=== PATIENT | male | born 1970 | race Native Hawaiian/Other Pacific Islander ===

== ENCOUNTER 2025-06-24 01:40 | Inpatient (IN) | payer OTHER ==
[~2025-06-24] VITALS: Ht 172.7 cm; Wt 102.3 kg
[~2025-06-24 01:40] MED LIST: ACET500 PO; AMOX-CLAV 500-1 EAC5 PO; AMOX-CLAV 875-1 EAC5 PO; DICLOFENAC SODI50 GM TP; DOCU100 PO; Diflucan100 MG PO; ELIQUIS5 M3 PO; FOLI1 PO; FUROSEMIDE40 MG PO; JARDIANCE10 MG PO; LIDOCAINE1 EACH TOP; METO50ER PO; NYSTATIN100000 U10 MT; PANTOPRAZOLE SO40 M2 PO; Potassium Chlo20 ME1 PO; SENNA LAXATIVE8.6 MG PO; SPIRONOLACTONE25 MG PO; SULTRIDS PO; TAMSULOSIN HCL0.4 M1 PO; VISBIOME 112.51 EACH PO
[2025-06-24 04:45] VITALS: BP 120/70
[2025-06-24] MEDS ORDERED: LORazepam 2 MG/ML 1ML Injection IV PRN (06:15)
[2025-06-24] MEDS ORDERED: FentaNYL Citrate 50 MCG/ML 2 ML Injection IV PRN (06:20)
[2025-06-24] MEDS ORDERED: Vancomycin (Pharmacy Consult) IV SCH (06:20)
[2025-06-24] MEDS ORDERED: Ondansetron HCl 2 MG / ML 2ML Vial IV PRN (06:20)
[2025-06-24] MEDS ORDERED: NS 1,000 ML IV SCH (06:20)
--- NOTE | 2025-06-24 06:28 | NUR ---
ADMIT NOTE PT ARRIVED TO PCU VIA EMS STRETCHER FROM [facility], DIRECT ADMIT. PT AMBULATED SBA FROM EMS STRETCHER TO PCU BED. PT ALERT, IRRITABLE, VERBALLY AGRESSIVE. REFUSED CLOTHING CHANGE, REFUSED LUNG ASSESSMENT. ALLOWED TELEMETRY TO BE PLACED. USED URINAL AT BEDSIDE. ARRIVED W/ 2 IVS, L FOREARM INFILTRATED W/ NS DURING EMS TRANSPORT PER REPORT, THIS RN REMOVED. MD BENAVIDEZ IN ROOM TO ASSESS BLE CELLULITS. TOOK DOWN DRESSINGS AND CLEANED/REDRESSED. SEE PICTURES IN CHART. PT STATES WOUNDS HAVE BEEN THERE FOR 10 WEEKS AND GETTING WORSE. PT ORIENTED TO ROOM, CALL LIGHT. CALL LIGHT IN REACH, BED ALARM ON.
[2025-06-24 06:47] LABS: BASOPHILS ABSOLUTE AUTO 0.05 K/mm3 (0.00-0.23); BASOPHILS PERCENT AUTO 1 % (0-2); EOSINOPHILS ABSOLUTE AUTO 0.18 K/mm3 (0.00-0.68); EOSINOPHILS PERCENT AUTO 2 % (0-6); Hematocrit 36.8 % (37.0-53.0); Hemoglobin 12.1 g/dL (13.5-17.5); IMMATURE GRAN ABSOLUTE AUTO 0.02 K/mm3 (0.00-0.10); IMMATURE GRAN PERCENT AUTO 0 % (0-1); LYMPHOCYTES ABSOLUTE AUTO 2.07 K/mm3 (0.84-5.20); LYMPHOCYTES PERCENT AUTO 24 % (21-46); MONOCYTES ABSOLUTE AUTO 0.82 K/mm3 (0.16-1.47); MONOCYTES PERCENT AUTO 10 % (4-13); Mean Corpuscular HGB Conc 32.9 g/dL (31.5-36.5); Mean Corpuscular Volume 95 fL (80-100); NEUTROPHILS ABSOLUTE AUTO 5.45 K/mm3 (1.96-9.15); NEUTROPHILS PERCENT AUTO 64 % (41-73); NRBC ABSOLUTE 0.00 K/mm3 (0.00-0.02); NRBC Auto 0.0 /100 WBC (0.0-0.2); Platelet Count 213 K/mm3 (150-400); RDW Coefficient Variation 19.2 % (11.7-14.2); RDW Standard Deviation 64.2 fL (35.1-46.3)
[2025-06-24 06:53] LABS: Prothrombin Time Results 12.3 Sec (9.7-11.5)
[2025-06-24 07:00] LABS: Magnesium, Blood 2.0 mg/dL (1.6-2.4); Phosphorus, Blood 3.0 mg/dL (2.5-4.9)
[2025-06-24 07:07] LABS: Alanine Aminotransfer (ALT/SGP 56.0 U/L (12-78); Albumin, Blood 2.3 g/dL (3.4-5.0); Albumin/Globulin Ratio 0.4 (0.8-1.8); Anion Gap 8.0 mmol/L (3-11); Aspartate Aminotrans (AST/SGOT 36.0 U/L (12-37); Bilirubin, Total 1.7 mg/dL (0.1-1.0); Blood Urea Nitrogen 13.0 mg/dL (8-24); CO2, Blood 26.0 mmol/L (21-32); Calcium, Blood 7.9 mg/dL (8.5-10.1); Chloride, Blood 104.0 mmol/L (98-108); Creatinine, Blood 0.64 mg/dL (0.60-1.20); Globulin, Blood 5.2 g/dL (2.2-4.0); Glucose, Blood 98.0 mg/dL (70-99); Potassium, Blood 3.4 mmol/L (3.5-5.5); Sodium, Blood 135.0 mmol/L (136-145); Total Protein, Blood 7.5 g/dL (6.4-8.2)
[2025-06-24] MEDS ORDERED: Vancomycin HCL 2,500 MG in NS 500 ML IV ONE (07:10)
[2025-06-24] MEDS ORDERED: Albumin (Human) 25gm/100ml 100 ML IV ONE (07:10)
[2025-06-24] MEDS ORDERED: Insulin Human Lispro 100 Units/ML 3ML Syringe SC SCH (07:30)
[2025-06-24] MEDS ORDERED: Piperacillin/Tazobactam Sod 4.5 GM in NS 100 ML IV SCH (08:00)
--- NOTE | 2025-06-24 08:14 | NUR ---
MAD Consult received. Spoke with cupola charger and nursing staff who desired that the Threat Assessment Team communicate with the patient. Conversation held with patient by Anyi Sosa and Albin Schmitt to discuss appropriate treatment of staff. Pt acknowledges his behavior and agrees to treat staff with respect. Nursing should notify Security or Quality/Risk if additional issues.
[2025-06-24 08:20] VITALS: BP 107/80
[2025-06-24] MEDS ORDERED: Lactobacil 2-S.Thermo-Bifido 1 1 Cap PO SCH (09:00)
[2025-06-24] MEDS ORDERED: Folic Acid 1 MG TAB PO SCH (09:00)
[2025-06-24] MEDS ORDERED: Enoxaparin 40 MG/0.4 ML SYR SC SCH (09:00)
[2025-06-24 10:45] LABS: U Amphetamine Screen DETECTED; U Barbituate Screen Not Detected; U Benzodiazapine Screen DETECTED; U Buprenorphine Screen Not Detected; U Cannabinoids Screen Not Detected; U Cocaine Screen Not Detected; U Methadone Screen Not Detected; U Methamphetamine Screen DETECTED; U Opiates Screen Not Detected; U Oxycodone Screen Not Detected; U Phencyclidine Screen Not Detected
[2025-06-24 12:00] VITALS: BP 139/78
[2025-06-24 16:00] LABS: Anion Gap 8.0 mmol/L (3-11); Blood Urea Nitrogen 13.0 mg/dL (8-24); CO2, Blood 28.0 mmol/L (21-32); Calcium, Blood 8.1 mg/dL (8.5-10.1); Chloride, Blood 105.0 mmol/L (98-108); Creatinine, Blood 0.81 mg/dL (0.60-1.20); Glucose, Blood 119.0 mg/dL (70-99); Potassium, Blood 3.8 mmol/L (3.5-5.5); Sodium, Blood 137.0 mmol/L (136-145)
[2025-06-24 17:07] VITALS: BP 146/85
--- NOTE | 2025-06-24 17:24 | NUR ---
SHIFT SUMMARY: PT A/0 X4, PT IRRITABLE AT TIMES, BUT HAS BEEN PLEASANT TODAY. PT ABLE TO MAKE NEEDS KNOWN, AND CALLS APPROPRIATELY. PT VSS, LAST BP 146/85. PTS ECHO SHOWED EF OF 30-35%. PT INDEP TO THE URINAL. PT LYING IN BED, CALL LIGHT WITHIN REACH.
[2025-06-24] MEDS ORDERED: HYDROcodone 5-APAP 325 TAB PO PRN (18:10)
[2025-06-24 19:46] VITALS: BP 117/90
[2025-06-24 23:31] VITALS: BP 125/99
[2025-06-25] VITALS (7 sets, daily range): BP systolic 114–140; BP diastolic 74–111
[2025-06-25 03:59] LABS: BASOPHILS ABSOLUTE AUTO 0.05 K/mm3 (0.00-0.23); BASOPHILS PERCENT AUTO 1 % (0-2); EOSINOPHILS ABSOLUTE AUTO 0.24 K/mm3 (0.00-0.68); EOSINOPHILS PERCENT AUTO 3 % (0-6); Hematocrit 37.9 % (37.0-53.0); Hemoglobin 11.7 g/dL (13.5-17.5); IMMATURE GRAN ABSOLUTE AUTO 0.03 K/mm3 (0.00-0.10); IMMATURE GRAN PERCENT AUTO 0 % (0-1); LYMPHOCYTES ABSOLUTE AUTO 1.60 K/mm3 (0.84-5.20); LYMPHOCYTES PERCENT AUTO 22 % (21-46); MONOCYTES ABSOLUTE AUTO 0.65 K/mm3 (0.16-1.47); MONOCYTES PERCENT AUTO 9 % (4-13); Mean Corpuscular HGB Conc 30.9 g/dL (31.5-36.5); Mean Corpuscular Volume 98 fL (80-100); NEUTROPHILS ABSOLUTE AUTO 4.86 K/mm3 (1.96-9.15); NEUTROPHILS PERCENT AUTO 66 % (41-73); NRBC ABSOLUTE 0.00 K/mm3 (0.00-0.02); NRBC Auto 0.0 /100 WBC (0.0-0.2); Platelet Count 215 K/mm3 (150-400); RDW Coefficient Variation 19.9 % (11.7-14.2); RDW Standard Deviation 68.9 fL (35.1-46.3)
[2025-06-25 04:20] LABS: Alanine Aminotransfer (ALT/SGP 49.0 U/L (12-78); Albumin, Blood 2.5 g/dL (3.4-5.0); Albumin/Globulin Ratio 0.5 (0.8-1.8); Anion Gap 6.0 mmol/L (3-11); Aspartate Aminotrans (AST/SGOT 33.0 U/L (12-37); Bilirubin, Total 1.1 mg/dL (0.1-1.0); Blood Urea Nitrogen 17.0 mg/dL (8-24); CO2, Blood 27.0 mmol/L (21-32); Calcium, Blood 8.3 mg/dL (8.5-10.1); Chloride, Blood 105.0 mmol/L (98-108); Creatinine, Blood 0.78 mg/dL (0.60-1.20); Globulin, Blood 5.3 g/dL (2.2-4.0); Glucose, Blood 172.0 mg/dL (70-99); Potassium, Blood 4.3 mmol/L (3.5-5.5); Sodium, Blood 134.0 mmol/L (136-145); Total Protein, Blood 7.8 g/dL (6.4-8.2)
--- NOTE | 2025-06-25 04:29 | NUR ---
SHIFT SUMMARY. SHIFT HAS BEEN MOSTLY UNREMARKABLE. PT AOX3-4, MOSTLY COOPERATIVE, ABLE TO MAKE NEEDS KNOWN. PT VERY LABILE, AT TIMES VERY IRRITATED YELLING AT STAFF AND AT OTHER TIMES VERY PLEASANT AND COOPERATIVE. VITALS HAVE BEEN STABLE THROUGHOUT SHIFT. CONTINUES TO RUN AFIB ON TELE WITH RATE SETTLING IN THE 110s-120s PRIMARILY WITH SOME SPORADIC BRIEF FLUCTUATIONS. HAS DENIED PAIN THROUGHOUT SHIFT OUTSIDE OF SOME BLE PAIN EARLY IN SHIFT WHICH PT REFUSED PAIN MEDICATION FOR. PT HAS HAD PLENTY OF FLUID INTAKE OVERNIGHT, ATTEMPTED TO EDUCATE ON LIMITING FLUID INTAKE TO SOME DEGREE BUT PT HAS THUS FAR BEEN UNINTERESTED/UNRECEPTIVE. SHIFT HAS OTHERWISE BEEN UNREMARKABLE. PT CONTINUES TO BECOME EASILY IRRITATED/ANGRY BUT IS MOSTLY COOPERATIVE. BED LOCKED IN LOWEST POSITION. CALL LIGHT WITHIN REACH. BED ALARM ACTIVE FOR SAFETY. CONTINUING TO MONITOR.
[2025-06-25] MEDS ORDERED: Metoprolol Tartrate 1 MG/ML 5 ML VIAL IV ONE (05:35)
[2025-06-25 05:51] LABS: Magnesium, Blood 1.9 mg/dL (1.6-2.4)
--- NOTE | 2025-06-25 05:53 | NUR ---
PT HR HAS BEEN RUNNING IN THE 120s-140s RANGE FOR ~30-45 MINUTES. SPOKE W/ DR. JAMES. ORDERED 5 MG IV LOPRESSOR PUSH OT. ORDER INPUT, AWAITING VERIFICATION.
[2025-06-25] MEDS ORDERED: Mag Sulfate 1 GM/D5% 100ML 100 ML IV STA (07:21)
[2025-06-25] MEDS ORDERED: CeFAZolin Sodium 1,000 MG in NS 50 ML IV SCH (16:00)
--- NOTE | 2025-06-25 18:22 | NUR ---
SHIFT SUMMARY PT A/O X4, ANXIOUS AND IRRITABLE AT TIMES. PT DENIES CHEST PAIN/PRESSURE. PT ON RA SATS >95. PT SBA TO BATHROOM, INDEP WITH URINAL. PT AFLUTTER 100-110s. OTHER VSS. PT BLE DRESSINGS CHANGED WITH PROVIDER AT BEDSIDE, DRESSED WOUNDS WITH ALGINATE, MUPIROCIN, ABD PADS, AND KERLEX. PROVIDER STATES DRESSINGS CAN STAY ON UP TO A WEEK, UNLESS SATURATED. MEDICATED PT FOR PAIN PER EMAR. BEDBATH COMPLETED DURING THIS SHIFT. FLUID RESTRICTION OF 1800 IMPLEMENTED. PT RESTING IN BED, CALL LIGHT IN REACH.
--- NOTE | 2025-06-25 20:18 | NUR ---
NOTIFIED BY [employer] THAT PT HAD 5 BEAT RUN OF VTACH FOLLOWED SHORTLY THEREAFTER BY 9 BEAT RUN OF VTACH. PT ASYMPTOMATIC, VITALS STABLE. NOTIFIED DR. JAMES. DIRECTED TO CONTINUE TO MONITOR FOR NOW.
[2025-06-25 20:42] LABS: Vancomycin, Trough 21.0 ug/mL (5.0-10.0)
[2025-06-26] VITALS (7 sets, daily range): BP systolic 97–136; BP diastolic 65–89
[2025-06-26 04:01] LABS: BASOPHILS ABSOLUTE AUTO 0.05 K/mm3 (0.00-0.23); BASOPHILS PERCENT AUTO 1 % (0-2); EOSINOPHILS ABSOLUTE AUTO 0.26 K/mm3 (0.00-0.68); EOSINOPHILS PERCENT AUTO 3 % (0-6); Hematocrit 37.7 % (37.0-53.0); Hemoglobin 11.9 g/dL (13.5-17.5); IMMATURE GRAN ABSOLUTE AUTO 0.04 K/mm3 (0.00-0.10); IMMATURE GRAN PERCENT AUTO 1 % (0-1); LYMPHOCYTES ABSOLUTE AUTO 1.80 K/mm3 (0.84-5.20); LYMPHOCYTES PERCENT AUTO 22 % (21-46); MONOCYTES ABSOLUTE AUTO 0.71 K/mm3 (0.16-1.47); MONOCYTES PERCENT AUTO 9 % (4-13); Mean Corpuscular HGB Conc 31.6 g/dL (31.5-36.5); Mean Corpuscular Volume 98 fL (80-100); NEUTROPHILS ABSOLUTE AUTO 5.30 K/mm3 (1.96-9.15); NEUTROPHILS PERCENT AUTO 65 % (41-73); NRBC ABSOLUTE 0.00 K/mm3 (0.00-0.02); NRBC Auto 0.0 /100 WBC (0.0-0.2); Platelet Count 215 K/mm3 (150-400); RDW Coefficient Variation 19.8 % (11.7-14.2); RDW Standard Deviation 68.2 fL (35.1-46.3)
[2025-06-26 04:29] LABS: Anion Gap 7.0 mmol/L (3-11); Blood Urea Nitrogen 23.0 mg/dL (8-24); CO2, Blood 30.0 mmol/L (21-32); Calcium, Blood 8.9 mg/dL (8.5-10.1); Chloride, Blood 103.0 mmol/L (98-108); Creatinine, Blood 0.74 mg/dL (0.60-1.20); Glucose, Blood 116.0 mg/dL (70-99); Potassium, Blood 3.9 mmol/L (3.5-5.5); Sodium, Blood 136.0 mmol/L (136-145)
--- NOTE | 2025-06-26 04:33 | NUR ---
SHIFT SUMMARY. SHIFT HAS BEEN UNREMARKABLE. PT AOX3-4, PLEASANT, COOPERATIVE, ABLE TO MAKE NEEDS KNOWN. HAS BEEN ABLE TO REST COMFORTABLY THROUGHOUT MOST OF SHIFT THUS FAR. VITALS HAVE BEEN STABLE. CONTINUES TO RUN AFIB ON TELE WITH RATE IN THE 100s-120s RANGE THROUGHOUT MOST OF SHIFT. HAS DENIED PAIN THROUGHOUT SHIFT. INDEPENDENT WITH URINAL, CALLS APPROPRIATLEY FOR ASSISTANCE. COOPERATIVE AND UNDERSTANDING OF FLUID RESTRICTION THUS FAR. BED LOCKED IN LOWEST POSITION. CALL LIGHT LEFT WITHIN REACH. CONTINUING TO MONITOR.
--- NOTE | 2025-06-26 09:47 | NUR ---
ASSUMPTION OF CARE: PATIENT IS ALERT AND ORIENTED X 4 ABLE TO MAKE NEEDS KNOWN, EXTREMELY PAINFUL AND STOIC, DID IMPROVE WITH EMAR PAIN MEDS AFTER MUCH EDUCATION. RESIDENT AND HOSPITLIST ROUNDED, EDCUATED WELL ON NEED FOR PAIN CONTROL. BLE PPP, DENIES CHEST PAIN PRESSURE OR SOB. SYSTOLIC >100. ACUTE CONCERNS ADDRESSED BY HOSPITALIST, PATIENT ENDORSES HE WANTS TO REST TODAY. DECLINED BED BATH
--- NOTE | 2025-06-26 16:16 | NUR ---
EOS: NO SIGNIFICANT CHANGES THROUGH THE SHIFT, PATIENT STILL WITH LABILE MOOD, DENIES CHEST PAIN, REFUSED PRN NORCO FOR THIS PRODUCTION MACHINE OPERATOR. HAS BEEN STABLE ON RA, INCREASED APPETITE, NO ACUTE CONCERNS. PATIENT REFUSED REPOSITIONIING, OR ELEVATED EDEMATOUS LIMBS FOR THIS PRODUCTION MACHINE OPERATOR AND PCT. NO OTHER CHANGES FROM ASSUMPTION
--- NOTE | 2025-06-26 16:48 | NUR ---
THIS RN RESUMED CARE OF THE PT AT 1630. REPORT FROM VAL HALE THE PT IS ANXIOUS, ORIENTEDX4, RAPID SPEECH, ON TELE AFIB 100'S. BP STABLE. THE PT PATTI ANY ANGINA OR CHEST PRESSURE. HE IS ON RA AND DENIES ANY SOB. THE PT IS C/O 10/10 PAIN IN BLE AND IS NOW C/O SEVERE ITCHING IN BLE. DRESSING C/D/I. THIS RN CALLED DR. CARLIN AND HE IS PLACING ORDERS. MEDICATIONS PER EMAR. THE PT IS ON A FLUID RESTRICTION AND IS GETTING IRRITABLE WITH THE RESTRICTION. HE STATED HE NEEDS TO DRINK WATER AND DOES NOT CARE ABOUT ANY FOOD ON HIS DINNER TRAY. THIS RN DISCUSSED WITH THE PT ABOUT ADRESSING HIS PAIN AND ITCHING THEN HIS FLUID RESTRICTION CAN BE READDRESSED. SEE NOTES FOR UPDATES.
--- NOTE | 2025-06-26 17:22 | NUR ---
PT C/O RAPID ONSET MIDSTERNAL CHESTPAIN THAT IS DULL-SHARP, 5-6/10 IN PAIN. BP STABLE. ON TELE HE IS AFIB 100'S. THIS RN CALLED DR. CARLIN AND THE PROVIDERED ORDERED AN EKG AND TROPONINS. PT MEDICATED PER EMAR FOR PAIN IN BLE AND MIDSTERNAL CHEST PAIN. SEE NOTES FOR ANY UPDATES.
--- NOTE | 2025-06-26 21:31 | NUR ---
transfer summary: pt aox4 transferred from [facility] @ 2014. pt upset when awoken but apologized after he woke up. pt in bed resting, oriented to room and call light, bed in lowest position, call light in reach. continuing care.
[2025-06-26 21:35] LABS: Vancomycin, Trough 19.4 ug/mL (5.0-10.0)
[2025-06-26] MEDS ORDERED: NS 250 ML IV PRN (22:10)
[2025-06-27 04:01] VITALS: BP 110/85
[2025-06-27 05:11] LABS: BASOPHILS ABSOLUTE AUTO 0.06 K/mm3 (0.00-0.23); BASOPHILS PERCENT AUTO 1 % (0-2); EOSINOPHILS ABSOLUTE AUTO 0.29 K/mm3 (0.00-0.68); EOSINOPHILS PERCENT AUTO 4 % (0-6); Hematocrit 38.7 % (37.0-53.0); Hemoglobin 12.2 g/dL (13.5-17.5); IMMATURE GRAN ABSOLUTE AUTO 0.04 K/mm3 (0.00-0.10); IMMATURE GRAN PERCENT AUTO 1 % (0-1); LYMPHOCYTES ABSOLUTE AUTO 1.92 K/mm3 (0.84-5.20); LYMPHOCYTES PERCENT AUTO 25 % (21-46); MONOCYTES ABSOLUTE AUTO 0.62 K/mm3 (0.16-1.47); MONOCYTES PERCENT AUTO 8 % (4-13); Mean Corpuscular HGB Conc 31.5 g/dL (31.5-36.5); Mean Corpuscular Volume 98 fL (80-100); NEUTROPHILS ABSOLUTE AUTO 4.71 K/mm3 (1.96-9.15); NEUTROPHILS PERCENT AUTO 62 % (41-73); NRBC ABSOLUTE 0.00 K/mm3 (0.00-0.02); NRBC Auto 0.0 /100 WBC (0.0-0.2); Platelet Count 224 K/mm3 (150-400); RDW Coefficient Variation 20.0 % (11.7-14.2); RDW Standard Deviation 68.9 fL (35.1-46.3)
--- NOTE | 2025-06-27 05:27 | NUR ---
SHIFT SUMMARY: PT AOX4 IND WITH THE URINAL, CALLS AND IS ABLE TO MAKE NEEDS KNOWN. PT INITIALLY AGGRESSIVE ON AWAKENING BEING VERBALLY ABUSIVE AND AGITATED. HOWEVER, AFTER SOME TIME, APOLOGIZED AND WAS SINCERE. REFUSED TO ALLOW ME TO REMOVE OR CHECK BANDAGES. COMPLAINTS OF PAIN AND BURING, MEDICATED PER EMR. REQUESTING SNACKS AND UPSET ABOUT FLUID RESTRTICTION AND READMISSION. SEEMS TO NOT UNDERSTAND DISEASE PROCESS OR HOW TO CARE FOR HIS CONDITIONS PROPERLY BUT WAS NOT RECEPTIVE TO TEACHING AT THIS TIME. PT SLEPT PRETTY WELL THROUGH THE NIGHT WITHOUT ISSUE. SLEEPING CURRENTLY, BED IN LOWEST POSITION, CALL LIGHT IN REACH. CONTINUING CARE.
[2025-06-27 05:35] LABS: Alanine Aminotransfer (ALT/SGP 34.0 U/L (12-78); Albumin, Blood 2.3 g/dL (3.4-5.0); Albumin/Globulin Ratio 0.4 (0.8-1.8); Anion Gap 8.0 mmol/L (3-11); Aspartate Aminotrans (AST/SGOT 25.0 U/L (12-37); Bilirubin, Total 0.8 mg/dL (0.1-1.0); Blood Urea Nitrogen 25.0 mg/dL (8-24); CO2, Blood 29.0 mmol/L (21-32); Calcium, Blood 8.5 mg/dL (8.5-10.1); Chloride, Blood 103.0 mmol/L (98-108); Creatinine, Blood 0.76 mg/dL (0.60-1.20); Globulin, Blood 5.4 g/dL (2.2-4.0); Glucose, Blood 131.0 mg/dL (70-99); Potassium, Blood 4.0 mmol/L (3.5-5.5); Sodium, Blood 136.0 mmol/L (136-145); Total Protein, Blood 7.7 g/dL (6.4-8.2)
[2025-06-27 08:01] VITALS: BP 112/93
[2025-06-27 13:27] VITALS: BP 106/75
[2025-06-27] MEDS ORDERED: HYDROcodone 5-APAP 325 TAB PO PRN (14:40)
[2025-06-27 16:24] VITALS: BP 103/82
--- NOTE | 2025-06-27 17:32 | NUR ---
SUMMARY- PT A/O X4, USES CALL LIGHT. CIWA STABLE 2-5, NO PRNS NEEDED. PT HAS BLE CELLULITIS, DR HANEY AND TEAM ASSESSED WOUND THIS AM AND REDRESSED, NEW DRESSING CHANGE ORDERS. PT AND DR HANEY STATE THE WOUNDS ARE HEALING NICELY. PICTURES TAKEN. PAIN CONTROLLED WITH NORCO 1- INCREASED FREQ AVAIL FROM 6-4HRS. PT TOLERATING FOOD AND FLUIDS. HAD ONE PERIOD OF NAUSEA , MEDICATED WITH ZOFRAN. THAN BEGAN COMPLAINING OF ABD PAIN, SHARP IN LUQ THAT RESOLVED ON IT'S OWN. PT IS DIURESING, SWELLING IN LEGS IS GOING DOWN. COMPLIANT WITH FLUID RESTRICTION WITH NURSES GUIDANCE. PT AMBULATED TO BATHROOM WITH SBA AND HAD BM TODAY. STEADY ON FEET- WILL REPORT TO BIJU HALE
[2025-06-27 19:26] VITALS: BP 117/92
[2025-06-27 22:24] LABS: Vancomycin, Trough 22.0 ug/mL (5.0-10.0)
[2025-06-28 04:30] VITALS: BP 103/87
[2025-06-28 05:26] LABS: BASOPHILS ABSOLUTE AUTO 0.05 K/mm3 (0.00-0.23); BASOPHILS PERCENT AUTO 1 % (0-2); EOSINOPHILS ABSOLUTE AUTO 0.21 K/mm3 (0.00-0.68); EOSINOPHILS PERCENT AUTO 3 % (0-6); Hematocrit 39.3 % (37.0-53.0); Hemoglobin 12.5 g/dL (13.5-17.5); IMMATURE GRAN ABSOLUTE AUTO 0.03 K/mm3 (0.00-0.10); IMMATURE GRAN PERCENT AUTO 0 % (0-1); LYMPHOCYTES ABSOLUTE AUTO 1.71 K/mm3 (0.84-5.20); LYMPHOCYTES PERCENT AUTO 21 % (21-46); MONOCYTES ABSOLUTE AUTO 0.61 K/mm3 (0.16-1.47); MONOCYTES PERCENT AUTO 7 % (4-13); Mean Corpuscular HGB Conc 31.8 g/dL (31.5-36.5); Mean Corpuscular Volume 96 fL (80-100); NEUTROPHILS ABSOLUTE AUTO 5.62 K/mm3 (1.96-9.15); NEUTROPHILS PERCENT AUTO 68 % (41-73); NRBC ABSOLUTE 0.00 K/mm3 (0.00-0.02); NRBC Auto 0.0 /100 WBC (0.0-0.2); Platelet Count 225 K/mm3 (150-400); RDW Coefficient Variation 19.9 % (11.7-14.2); RDW Standard Deviation 68.0 fL (35.1-46.3)
[2025-06-28 05:52] LABS: Alanine Aminotransfer (ALT/SGP 30.0 U/L (12-78); Albumin, Blood 2.3 g/dL (3.4-5.0); Albumin/Globulin Ratio 0.4 (0.8-1.8); Anion Gap 8.0 mmol/L (3-11); Aspartate Aminotrans (AST/SGOT 25.0 U/L (12-37); Bilirubin, Total 0.8 mg/dL (0.1-1.0); Blood Urea Nitrogen 23.0 mg/dL (8-24); CO2, Blood 30.0 mmol/L (21-32); Calcium, Blood 8.5 mg/dL (8.5-10.1); Chloride, Blood 101.0 mmol/L (98-108); Creatinine, Blood 0.8 mg/dL (0.60-1.20); Globulin, Blood 5.3 g/dL (2.2-4.0); Glucose, Blood 111.0 mg/dL (70-99); Potassium, Blood 4.0 mmol/L (3.5-5.5); Sodium, Blood 135.0 mmol/L (136-145); Total Protein, Blood 7.6 g/dL (6.4-8.2)
--- NOTE | 2025-06-28 05:57 | NUR ---
SHIFT SUMMARY; SLEPT IN SHORT INTERVAL, DECLINED PAIN MEDS, EVEN TYLENOL. REMINDED TO BE POLITE TO THE STAFF. STATES HE IS NOT WITHDRAWING AND HE IS DIFFICULT TO WORK WITH AT TIMES.GOT A NICOTINE PATCH. REMAINS IN CONTACT ISOLATION FOR HX OF MRSA.
[2025-06-28 08:12] VITALS: BP 114/84
[2025-06-28] MEDS ORDERED: OxyCODONE 5 mg/Acetamin 325 mg TABLET PO PRN (12:05)
[2025-06-28 15:20] VITALS: BP 95/68
--- NOTE | 2025-06-28 16:31 | NUR ---
SUMMARY- PT A/O X4- USES CALL LIGHT APPROPRIATELY. AMBULATES SBA TO THE BATHROOM. PT'S MOOD IS LABILE, SOMETIMES CALM AND COOPERATIVE BUT QUICKLY BECOMES AGITATED AND HAS POOR COPING SKILLS. PT'S BLE WOUNDS COVERED WITH DRESSINTG AND LUIS F LAST CHANGE , NO SHADOWING. FEET REMAIN WITH SCIENCE TUTOR 4 SECONDS, FEET REMAIN A DUSKY COLOR BUT WARM. PT DECLINED NORCO BECAUSE IT MADE HIM NAUSEATED AND HIS STOMACH HURT. DR'S AWARE, CHANGED TO PERCOCET. PT STATES GREAT PAIN RELEIF AND LESS GI UPSET. PT TOLERATING FOOD AND FLUID. COMPLIANT WITH FLUID RESTRICTION BUT NOT HAPPY ABOUT IT. VOIDING LG AMOUNTS, DIURESING PT. STRICT I/O'S. NICOTINE PATCH STARTED TODAY. WILL REPORT TO BIJU HALE
[2025-06-28 19:55] VITALS: BP 113/93
--- NOTE | 2025-06-29 04:20 | NUR ---
SHIFT SUMMARY; PATIENT LOUD AND CUSING INAPPROPRIATLY AT TIMES. IS MOVING BETTER, ABLE TO WALK TO BR NOW. REFUSES TO WEAR GOWN/COLTHES/BRIEF IN THE ROOM, SO HE IS NAKED, I'VE KEPT THE DOOR SHUT. HE REMAINS IN CONTACT ISOATION FOR HX OF MRSA.
[2025-06-29 05:06] VITALS: BP 97/79
[2025-06-29 05:15] LABS: BASOPHILS ABSOLUTE AUTO 0.05 K/mm3 (0.00-0.23); BASOPHILS PERCENT AUTO 1 % (0-2); EOSINOPHILS ABSOLUTE AUTO 0.19 K/mm3 (0.00-0.68); EOSINOPHILS PERCENT AUTO 2 % (0-6); Hematocrit 37.4 % (37.0-53.0); Hemoglobin 12.1 g/dL (13.5-17.5); IMMATURE GRAN ABSOLUTE AUTO 0.02 K/mm3 (0.00-0.10); IMMATURE GRAN PERCENT AUTO 0 % (0-1); LYMPHOCYTES ABSOLUTE AUTO 1.47 K/mm3 (0.84-5.20); LYMPHOCYTES PERCENT AUTO 18 % (21-46); MONOCYTES ABSOLUTE AUTO 0.71 K/mm3 (0.16-1.47); MONOCYTES PERCENT AUTO 9 % (4-13); Mean Corpuscular HGB Conc 32.4 g/dL (31.5-36.5); Mean Corpuscular Volume 96 fL (80-100); NEUTROPHILS ABSOLUTE AUTO 5.68 K/mm3 (1.96-9.15); NEUTROPHILS PERCENT AUTO 70 % (41-73); NRBC ABSOLUTE 0.00 K/mm3 (0.00-0.02); NRBC Auto 0.0 /100 WBC (0.0-0.2); Platelet Count 207 K/mm3 (150-400); RDW Coefficient Variation 19.9 % (11.7-14.2); RDW Standard Deviation 66.7 fL (35.1-46.3)
[2025-06-29 05:42] LABS: Alanine Aminotransfer (ALT/SGP 25.0 U/L (12-78); Albumin, Blood 2.3 g/dL (3.4-5.0); Albumin/Globulin Ratio 0.4 (0.8-1.8); Anion Gap 7.0 mmol/L (3-11); Aspartate Aminotrans (AST/SGOT 25.0 U/L (12-37); Bilirubin, Total 0.8 mg/dL (0.1-1.0); Blood Urea Nitrogen 22.0 mg/dL (8-24); CO2, Blood 30.0 mmol/L (21-32); Calcium, Blood 8.6 mg/dL (8.5-10.1); Chloride, Blood 101.0 mmol/L (98-108); Creatinine, Blood 0.75 mg/dL (0.60-1.20); Globulin, Blood 5.2 g/dL (2.2-4.0); Glucose, Blood 110.0 mg/dL (70-99); Potassium, Blood 4.2 mmol/L (3.5-5.5); Sodium, Blood 134.0 mmol/L (136-145); Total Protein, Blood 7.5 g/dL (6.4-8.2)
[2025-06-29 08:15] VITALS: BP 109/81
[2025-06-29 13:02] LABS: Vancomycin, Trough 20.4 ug/mL (5.0-10.0)
[2025-06-29 14:57] VITALS: BP 96/82
[2025-06-29 18:21] VITALS: BP 108/63
--- NOTE | 2025-06-29 18:34 | NUR ---
SHIFT SUMMARY ADMIT SINCE 06.24.25 FOR BLE MRSA SEPSIS + SEPSIS. + FOR METH AND ETOH ON ADMIT. LABILE MOOD TODAY, FAIRLY REDIRECTABLE TODAY. WOUNDS REDRESSED WITH HYDROCOLLOID, KERLEX, AND LUIS F WRAPS TO BLE TODAY. WOUNDS ON LEGS APPEAR IMPROVED TODAY, DOES PATIENT'S PAIN LEVEL. VANCOMYCIN ALTERNATING WITH CEFAZOLIN VIA LFA IV. PT ADAMENT HE DOES NOT WISH TO RETURN TO THE [place]. SUCCESSFULLY TITRATED DOWN FROM 80 MG TO 40 MG IV LAXIS BID TODAY. SEEMINLY TRACE TO NO PITTING EDEMA REMAINS IN BLE. NO EVIDENCE OF URINE RETENTION.
[2025-06-29 20:33] VITALS: BP 121/104
--- NOTE | 2025-06-30 04:46 | NUR ---
SHIFT SUMMARY NOC PT A/O X 4. FORGETFUL AT TIMES, BUT COOPERATIVE WITH CARE. VSS. IV ABX PER EMAR. PT DECLINED PERCOCET FOR PAIN AT BEDTIME BECAUSE THEY STATED "THEY DID NOT RECALL ANYTHING FROM PRIOR NIGHT AFTER TAKING IT". BLE DRESSING ARE C/D/I. PT CIWA 3,3,8,2 WITH ONE DOSE ATIVAN GIVEN. DURING SHIFT. PT CURRENTLY RESTING WITH BED ALARM ON, BED IN LOWEST POSITION, AND CALL LIGHT WITHIN REACH.
[2025-06-30 04:54] VITALS: BP 126/97
[2025-06-30 07:11] LABS: BASOPHILS ABSOLUTE AUTO 0.04 K/mm3 (0.00-0.23); BASOPHILS PERCENT AUTO 1 % (0-2); EOSINOPHILS ABSOLUTE AUTO 0.20 K/mm3 (0.00-0.68); EOSINOPHILS PERCENT AUTO 2 % (0-6); Hematocrit 39.6 % (37.0-53.0); Hemoglobin 12.6 g/dL (13.5-17.5); IMMATURE GRAN ABSOLUTE AUTO 0.02 K/mm3 (0.00-0.10); IMMATURE GRAN PERCENT AUTO 0 % (0-1); LYMPHOCYTES ABSOLUTE AUTO 1.77 K/mm3 (0.84-5.20); LYMPHOCYTES PERCENT AUTO 20 % (21-46); MONOCYTES ABSOLUTE AUTO 0.88 K/mm3 (0.16-1.47); MONOCYTES PERCENT AUTO 10 % (4-13); Mean Corpuscular HGB Conc 31.8 g/dL (31.5-36.5); Mean Corpuscular Volume 97 fL (80-100); NEUTROPHILS ABSOLUTE AUTO 5.88 K/mm3 (1.96-9.15); NEUTROPHILS PERCENT AUTO 67 % (41-73); NRBC ABSOLUTE 0.00 K/mm3 (0.00-0.02); NRBC Auto 0.0 /100 WBC (0.0-0.2); Platelet Count 205 K/mm3 (150-400); RDW Coefficient Variation 19.9 % (11.7-14.2); RDW Standard Deviation 69.5 fL (35.1-46.3)
[2025-06-30 07:33] VITALS: BP 119/91
[2025-06-30 07:35] LABS: Anion Gap 7.0 mmol/L (3-11); Blood Urea Nitrogen 26.0 mg/dL (8-24); CO2, Blood 29.0 mmol/L (21-32); Calcium, Blood 8.7 mg/dL (8.5-10.1); Chloride, Blood 103.0 mmol/L (98-108); Creatinine, Blood 0.83 mg/dL (0.60-1.20); Glucose, Blood 105.0 mg/dL (70-99); Potassium, Blood 4.1 mmol/L (3.5-5.5); Sodium, Blood 135.0 mmol/L (136-145)
[2025-06-30 13:30] LABS: Vancomycin, Trough 16.3 ug/mL (5.0-10.0)
[2025-06-30] MEDS ORDERED: MUPIROCIN1 G1 TOP (14:29)
[2025-06-30] MEDS ORDERED: SULFAMETHOXAZO1 EAC1 PO (14:30)
[2025-06-30] MEDS ORDERED: AMOCLA875 PO (14:30)
--- NOTE | 2025-06-30 17:19 | NUR ---
PT DISCHARGED TO HOME. ALL VAULABES RETURNED AND SENT HOME WITH THE PT. DISCHARGE INSTRUCTIONS PROVIDED AND EDUCATED ON AT TIME OF DISCHARGE.
== END 2025-06-30 16:40 | disposition home or self-care (01) | DRG 872 ==
LOC: PCU 01:40 → MEDS 05:49 → PCU 05:49 → MEDS 06-26 20:12
PROVIDERS: Student in an Organized Health Care Education/Training Program; ADMIT Internal Medicine
PROC: 3E03329 Introduction of Other Anti-infective into Peripheral Vein, Percutaneous Approach (ICD-10-PCS; principal; 2025-06-24)
PROC: 30233J1 Transfusion of Nonautologous Serum Albumin into Peripheral Vein, Percutaneous Approach (ICD-10-PCS; 2025-06-24)
DX: A41.9 Sepsis, unspecified organism (principal); L03.116 Cellulitis of left lower limb; F15.20 Other stimulant dependence, uncomplicated; I42.6 Alcoholic cardiomyopathy; Z59.00 Homelessness unspecified; F10.239 Alcohol dependence with withdrawal, unspecified; I48.20 Chronic atrial fibrillation, unspecified; L97.929 Non-pressure chronic ulcer of unspecified part of left lower leg with unspecified severity; L97.919 Non-pressure chronic ulcer of unspecified part of right lower leg with unspecified severity; I42.7 Cardiomyopathy due to drug and external agent; I50.22 Chronic systolic (congestive) heart failure; L03.115 Cellulitis of right lower limb; I11.0 Hypertensive heart disease with heart failure; F10.20 Alcohol dependence, uncomplicated; N35.919 Unspecified urethral stricture, male, unspecified site; I27.20 Pulmonary hypertension, unspecified; E66.9 Obesity, unspecified; I08.3 Combined rheumatic disorders of mitral, aortic and tricuspid valves; Z86.14 Personal history of Methicillin resistant Staphylococcus aureus infection; Z79.899 Other long term (current) drug therapy; T43.655A Adverse effect of methamphetamines, initial encounter
CPT/HCPCS: 36415; 80048; 80053; 80202; 82947; 83036; 83735; 83880; 84100; 84484; 85025; 85610; 93005; 93010; 93306; A9270; J0690; J1938; J2060; J2405; J2543; J3010; J3373; J3475; J7040; J7050; P9047